=== PATIENT | female | born 1985 | race Caucasian/White ===

== ENCOUNTER 2016-08-29 12:38 | Emergency (ER) | payer BC ==
[2016-08-29 12:50] VITALS: BP 123/48; PULSE 64; TEMP 98; BMI 38.4
[2016-08-29] MEDS ORDERED: predniSONE 20 MG TABLET (UD) PO ONE (12:59)
[2016-08-29] MEDS ORDERED: RANITIDINE HCL 150 MG TABLET (FP) PO ONE (12:59)
[2016-08-29] MEDS ORDERED: diphenhydrAMINE HCL 25 MG CAPSULE (FP) PO ONE ×2 (12:59→13:05)
--- NOTE | 2016-08-29 13:00 | PDOC ---
History of Present Illness - General Chief Complaint: Allergic Reaction Stated Complaint: Allergic Reaction Time Seen by Provider: 08/29/16 12:58 History Source: Patient Exam Limitations: No Limitations - History of Present Illness Initial Comments: 08/29/16 13:14 CHIEF COMPLAINT:hives face/ posterior neck HISTORY OF PRESENT ILLNESS: Pt is a 31-year-old female employee of [employer] here complaining of a pruritic rash on her face posterior neck starting at approximately noon today. Patient has allergies to eggs and garlc. Reports itchiness to her chest however no rashes noted presently. Patient does not have any difficulty breathing or swallowing. Patient denies having itchy throat. Patient denies any new cosmetics or any new soaps or laundry detergents. She denies ever having a rash to this extent prior due to allergies. Pt. denies any chance of . 08/29/16 18:12 Timing/Duration: getting worse Severity: moderate Associated Symptoms: reports: rash (pruritic face and posterior neck ). denies : shortness of breath Past History - Past Medical History Allergies/Adverse Reactions: Allergies Allergy/AdvReac Type Severity Reaction Status Date / Time EGGS Allergy Uncoded 08/29/16 12:49 GARLIC Allergy Uncoded 08/29/16 12:49 Home Medications: Ambulatory Orders Prednisone [Deltasone] 20 mg PO BID #8 tablet 08/29/16 Ranitidine [Zantac -] 150 mg PO BID #8 tablet 08/29/16 Other medical history: NONE - Psycho/Social/Smoking Cessation Hx Anxiety: No Suicidal Ideation: No Smoking History: Never smoked Number of Cigarettes Smoked Daily: 0 Hx Alcohol Use: Yes (SOCIAL) Drug/Substance Use Hx: No Substance Use Type: None Review of Systems - Review of Systems Able to Perform ROS?: Yes Constitutional: No: Symptoms Reported HEENTM: No: Symptoms Reported Respiratory: No: Symptoms reported Cardiac (ROS): No: Symptoms Reported ABD/GI: No: Symptoms Reported : No: Symptoms Reported Musculoskeletal: No: Symptoms Reported Integumentary: Yes: Pruritus, Rash (face and posterior neck ) Neurological: No: Symptoms reported *Physical Exam - Vital Signs Last Vital Signs Temp Pulse Resp BP Pulse Ox 98.0 F 64 20 123/48 95 08/29/16 12:46 08/29/16 12:46 08/29/16 12:46 08/29/16 12:46 08/29/16 12:46 - Physical Exam General Appearance: Yes: Appropriately Dressed HEENT: positive: Normal ENT Inspection Neck: negative: Lymphadenopathy (R), Lymphadenopathy (L) Respiratory/Chest: positive: Lungs Clear, Normal Breath Sounds. negative: Chest Tender, Respiratory Distress Cardiovascular: positive: Regular Rhythm, Regular Rate, S1, S2 Integumentary: positive: Hives (face/ posterior neck ) Neurologic: positive: Alert, Normal Response, Responsive Medical Decision Making - Medical Decision Making 08/29/16 13:17 Pt is a 31-year-old female employee of [employer] here complaining of a pruritic rash on her face posterior neck starting at approximately noon today. Patient has allergies to eggs and garlc. Reports itchiness to her chest however no rashes noted presently. Patient does not have any difficulty breathing or swallowing. Patient denies having itchy throat. Patient denies any new cosmetics or any new soaps or laundry detergents. She denies ever having a rash to this extent prior due to allergies. Pt. denies any chance of . 08/29/16 13:18 Allergic urticaria PLAN: prednisone 60 mg po now than 20 mg bid for following 4 days zantac 150 mg po now than bid for following 4 days benadryl 25 mg po now than every 4 hrs prn 08/29/16 13:24 08/29/16 13:42 feeling better minimal itchiness to lips facial rash is less, no difficulty breathing or swallowing *DC/Admit/Observation/Transfer Diagnosis at time of Disposition: Allergic urticaria - Discharge Dispostion Disposition: HOME Condition at time of disposition: Stable - Prescriptions Prescriptions: Prednisone [Deltasone] 20 mg PO BID #8 tablet Ranitidine [Zantac -] 150 mg PO BID #8 tablet - Referrals Referrals: Emanuel Varela MD [Primary Care Provider] - - Patient Instructions Additional Instructions: Return to emergency room if any difficulty swallowing or breathing 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
[2016-08-29] MEDS ORDERED: predniSONE 20 MG TABLET (UD) ONE (13:05)
[2016-08-29] MEDS ORDERED: RANITIDINE HCL 150 MG TABLET (FP) ONE (13:05)
== END 2016-08-29 13:46 | disposition home or self-care (01) ==
LOC: JER 12:38 → JERFT 12:38
DX: L50.0 Allergic urticaria (principal)
CPT/HCPCS: 99281-25